=== PATIENT | male | born 1945 | race African-American/Black ===

== ENCOUNTER 2020-08-17 12:48 | Emergency (ER) | payer OTHER, MEDICARE ==
[~2020-08-17] VITALS: Ht 180.3 cm; Wt 79.4 kg
--- NOTE | 2020-08-17 13:00 | NUR ---
ED Nurse Note: Pt walked into ED for L abscess on thigh for a few days. Pt has bleeding and pus coming out of abscess. Abscess from unknown cause. Pt is alert and orientedx4, ambulatory. He has no COVID symptoms.
[2020-08-17] MEDS ORDERED: Lidocaine 1% Plain 30 ml INJ ONE (13:15)
[2020-08-17] MEDS ORDERED: BACTRIM DS TAB1 EAC1 ORAL (13:16)
--- NOTE | 2020-08-17 13:18 | Emergency Room Report ---
History of Present Illness General Chief Complaint: Skin Rash/Abscess Source: Patient Present Illness HPI Disclaimer: Please note that this report is being documented using DRAGON technology. This can lead to erroneous entry secondary to incorrect interpretation by the dictating instrument. HPI: 75-year-old male presents for evaluation of an abscess. He reports noting a swelling over the left inner thigh for approximately 1 week. Spontaneously ruptured and drained pus for the past few days. He has been applying Neosporin and antiseptic soap to keep it clean. Keeping it bandaged but continues to drain. Came in for evaluation. Reports some discomfort but not significant pain. Denies fever or chills. Denies pain or swelling of the scrotum. Cannot recall any specific trauma. PMH: Hypertension PSH: Reviewed Allergies: Denied Social Hx: Reviewed Allergies: Coded Allergies: No Known Allergies (Unverified , 08/17/20) COVID-19 Screening Contact w/high risk pt: No Experienced COVID-19 symptoms?: No COVID-19 Testing performed CMO & PRESIDENT: No Nursing Documentation-PMH Past Medical History: No History, Except For Hx Hypertension: Yes Review of Systems All Other Systems: negative except mentioned in HPI Physical Exam Vital Signs Date Time Temp Pulse Resp B/P (MAP) Pulse Ox O2 Delivery O2 Flow Rate FiO2 08/17/20 13:02 98.2 75 18 107/70 (82) 92 Room Air General: Awake and alert, no acute distress HEENT: NC/AT. EOMI. Resp: Normal work of breathing Skin: There is a 3 x 3 circular region of induration over the left inner thigh with a central hole draining serosanguineous fluid. No active bleeding. No significant purulent drainage. No fluctuance or palpable fluid collection underneath the skin. MSK: Normal tone and bulk. Moving all extremities. No obvious deformity. Neuro: Awake and alert. Mentating appropriately Medical Decision Making Diagnostic Impression: Primary Impression: Abscess Additional Impression: Cellulitis ER Course 75-year-old male presents for evaluation of abscess. Abscess has spontaneously rupture and appears drained. Wound care was applied though there is surrounding cellulitis which required treated with antibiotics. We will start the patient on Bactrim. Instructed him how to keep the wound clean and reasons to return to the emergency department. He is otherwise to follow-up with his PMD. He understands agrees with the treatment plan. Last Vital Signs Date Time Temp Pulse Resp B/P (MAP) Pulse Ox O2 Delivery O2 Flow Rate FiO2 08/17/20 13:02 98.2 75 18 107/70 (82) 92 Room Air Disposition: HOME, SELF-CARE Condition: Stable Scripts Trimethoprim/Sulfamethoxazole 160/800* (BACTRIM DS TABLET*) 1 Each Tablet 1 TAB ORAL Q12H for 7 Days, #14 TAB 0 Refills Prov: Esequiel Dominguez MD 08/17/20 Referrals: [facility]. [facility] Patient Instructions: Abscess Additional Instructions: Take the antibiotics as instructed. Please follow-up with your primary care doctor in the next 1 to 3 days to discuss this emergency department visit and for reevaluation. If you have any new or worsening symptoms please return to the emergency department for reevaluation. Please note that this report is being documented using DRAGON technology. This can lead to erroneous entry secondary to incorrect interpretation by the dictating instrument. Esequiel Dominguez MD Aug 17, 2020 13:18
[2020-08-17 13:42] VITALS: BP 112/75
[2020-08-17 13:44] VITALS: BP 117/97
--- NOTE | 2020-08-17 13:44 | NUR ---
ER DISCHARGE NOTE: Patient is cleared to be discharged per ERMD, pt is aox4, on room air, with stable vital signs. pt was given dc and prescription instructions, pt was able to verbalize understanding, pt id band removed. pt is able to ambulate with steady gait. pt took all belongings. Dressing applied to wound, pt given wound care education.
== END 2020-08-17 13:44 | disposition home or self-care (01) ==
LOC: EMR 13:40
DX: L02.416 Cutaneous abscess of left lower limb (principal); L03.116 Cellulitis of left lower limb; I10 Essential (primary) hypertension
CPT/HCPCS: 99282; J2001